=== PATIENT | male | born 1990 | race Caucasian/White ===

== ENCOUNTER 2016-07-08 17:10 | Observation (INO) | payer OTHER ==
[2016-07-08] MEDS ORDERED: HOME MEDICATION LIST NEEDED 1 EA EACH MISC ONE ×2 (18:44→19:29)
[2016-07-08 18:46] LABS: BASOPHIL# 0.4 X 10^3uL (0.0-0.1); BASOPHILS 2.4 % (0.0-2.0); EOSINOPHILS 0.2 % (0.0-6.0); HEMATOCRIT 50.4 % (42.0-54.0); HEMOGLOBIN 17.2 g/dL (14.0-18.0); LYMPHOCYTES 12.9 % (20.0-40.0); LYMPHOCYTES# 2.1 X 10^3uL (0.8-3.8); MEAN CELL VOLUME 90.2 fL (80.0-100.0); MEAN CORPUS. HGB CONCENTRATION 34.1 g/dL (32.0-36.0); MEAN CORPUSCULAR HEMOGLOBIN 30.8 pg (29.0-35.0); MEAN PLATELET VOLUME 8.3 fL (7.4-10.4); NEUTROPHILS 78.5 % (54.0-75.0); NEUTROPHILS# 12.5 X 10^3uL (2.6-6.7); RED BLOOD COUNT 5.59 X 10^6uL (4.20-6.10); RED CELL DISTRIBUTION WIDTH 11.1 % (11.5-14.5)
[2016-07-08] MEDS ORDERED: NORMAL SALINE 500 ML IV ONE (18:46)
[2016-07-08] MEDS ORDERED: WATER FOR INJECTION 20 ML ONE (18:46)
[2016-07-08] MEDS ORDERED: VANCOMYCIN HCL 1,000 MG/20 ML VIAL ONE (18:46)
[2016-07-08] MEDS ORDERED: ACETAMINOPHEN 325 MG TABLET PO PRN (19:29)
[2016-07-08] MEDS ORDERED: POLYETHYLENE GLYCOL 3350 17 GM POWD.PACK PO PRN (19:29)
[2016-07-08] MEDS ORDERED: MAG-AL PLUS XS SUSP 30 ML UDC PO PRN (19:29)
[2016-07-08] MEDS ORDERED: DIPH,PERTUSS(ACELL),TET VAC/PF 0.5 ML VIAL IM ONE (19:34)
[2016-07-08] MEDS ORDERED: cloNIDine HCL 0.1 MG TABLET PO PRN (19:34)
[2016-07-08] MEDS ORDERED: KETOROLAC TROMETHAMINE 30 MG/ML VIAL IV PRN (19:34)
[2016-07-08] MEDS ORDERED: AMPICILLIN/SULBACTAM 1.5 GM in NORMAL SALINE MINI-BAG+ 100 ML IV SCH (19:45)
--- NOTE | 2016-07-08 19:49 | ER PHYSICIAN DOCUMENTATION ---
Physician Documentation [facility] Name:Jose Armando Fernández Age:25 yrs Sex:Male :1990 Arrival Date:07/08/2016 Time:17:10 Bed1 Private MD: Fabrizio Williamson Disposition: 07/08/16 18:43 Admit ordered for He Ivory. Preliminary diagnosis is Abscess. - Bed requested for Medical/Surgical. - Condition is Fair. - Problem is new. - Symptoms have improved. 23 HR OBS Yes HPI: 07/08 18:37 This 25 yrs old Male presents to ER via Private Vehicle with complaints of sc Abscess - RT HAND. 18:37 The patient presents with an abscess of the right hand. Description: The affected area sc is approximately 4 cm(s), confluent, erythematous, tense. Onset: The symptom(s)/episode began/occurred 1 week(s) ago. Possible cause(s): IVDA. Associated signs and symptoms: Pertinent positives: erythema, streaking up arm. Historical: - Allergies: No known drug Allergies; - Home Meds: 1. losartan oral - PMHx: herin use; - PSHx: None; - Tetanus: < 10 years. - Ebola Screening: : Patient denies exposure to infectious person. Patient denies travel to an Ebola-affected area in the 21 days before illness onset. . - Immunization history: Flu Vaccine None. - Social history: Smoking status: Patient states former smoker of tobacco. Patient uses alcohol Patient/guardian denies using marijuana. ROS: 18:40 Constitutional: Negative for fever, chills, and weight loss. sc Eyes: Negative for injury, pain, redness, and discharge. ENT: Negative for injury, pain, and discharge. Neck: Negative for injury, pain, and swelling. Cardiovascular: Negative for chest pain, palpitations, and edema. Respiratory: Negative for shortness of breath, cough, wheezing, and pleuritic chest pain. Back: Negative for injury and pain. 18:40 Neuro: Negative for headache, weakness, numbness, tingling, and seizure. sc 18:40 Skin: Positive for abscess. Exam: Constitutional: This is a well developed, well nourished patient who is awake, alert, and in no acute distress. Head/Face: Normocephalic, atraumatic. Eyes: Pupils equal round and reactive to light, extra-ocular motions intact. Lids and lashes normal. Conjunctiva and sclera are non-icteric and not injected. Cornea within normal limits. Periorbital areas with no swelling, redness, or edema. ENT: Nares patent. No nasal discharge, no septal abnormalities noted. Tympanic membranes are normal and external auditory canals are clear. Oropharynx with no redness, swelling, or masses, exudates, or evidence of obstruction, uvula midline. Mucous membranes moist. Neck: Trachea midline, no thyromegaly or masses palpated, and no cervical lymphadenopathy. Supple, full range of motion without nuchal rigidity, or vertebral point tenderness. No meningismus. Chest/axilla: Normal chest wall appearance and motion. Nontender with no deformity. No lesions are appreciated. Cardiovascular: Regular rate and rhythm with a normal S1 and S2. No gallops, murmurs, or rubs. Normal PMI, no JVD. No pulse deficits. 18:41 Respiratory: Lungs have equal breath sounds bilaterally, clear to auscultation and sc percussion. No rales, rhonchi or wheezes noted. No increased work of breathing, no retractions or nasal flaring. 18:41 Musculoskeletal/extremity: Exam is negative for acute changes, except streaking to shoulder. 18:41 Skin: abscess, that is moderate sized. Vital Signs: 17:22 BP 144 / 90; Pulse 87; Resp 18; Temp 98.4; Pulse Ox 91% on R/A; Pain 8/10; st 18:05 Weight 88.45 kg; st 19:24 BP 122 / 61; Pulse 74; Resp 15; Pulse Ox 95% on R/A; Pain 0/10; mk2 Procedures: 18:41 I & D: Incision and drainage was performed for an abscess of the right right hand sc Prepped with Betadine, Anesthetized with ml's 2% Lidocaine with epinephrine. 2 ml's 2% Lidocaine with epinephrine. Incised with #11 blade. Drained moderate amount purulent fluid. the patient tolerated the procedure well. MDM: 17:16 Patient medically screened. sc 18:42 Differential diagnosis: abscess. Data reviewed: vital signs, nurses notes, lab test sc result(s), and as a result, I will admit patient. Counseling: I had a detailed discussion with the patient and/or guardian regarding: the historical points, exam findings, and any diagnostic results supporting the discharge/admit diagnosis, lab results, the need for further work-up and treatment in the hospital. 07/08 18:48 Order name: CBC AUTO DIF, MDIF/RMOR IF IND [facility] 07/08 21:48 Order name: ANTI-HIV 1 2 [facility] 07/08 21:48 Order name: HEPATITIS B SURFACE ANTIGEN [facility] 07/09 07:02 Order name: CBC AUTO DIF, MDIF/RMOR IF IND [facility] 07/09 07:04 Order name: BASIC METABOLIC PANEL [facility] 07/09 07:11 Order name: WOUND CULTURE AND GRAM STAIN [facility] 07/09 07:22 Order name: THYROID STIMULATING HORMONE [facility] 07/09 18:31 Order name: BLOOD CULTURE [facility] 07/09 18:50 Order name: BLOOD CULTURE [facility] 07/08 17:35 Order name: Iv Saline Lock; Complete Time: 18:25 sc Dispensed Medications: 18:47 CANCELLED (Duplicate Order): vancomycin 1 grams IVPB once over 2 hrs sc 18:49 Drug: Vancocin 1.5 grams; Route: IVPB; Infused Over: 2 hrs; Site: left wrist; st 19:39 Follow up: IV Status: Infusion continued upon admission mk2 Signatures: Ching Castro RN RN st Chew, Scott, MD MD sc Kruger, Meg, RN RN mk2
--- NOTE | 2016-07-08 19:49 | ER NURSING DOCUMENTATION ---
Nurse's Notes [facility] Name:Jose Armando Fernández Age:25 yrs Sex:Male :1990 Arrival Date:07/08/2016 Time:17:10 Bed1 Private MD: Diagnosis:Abscess Presentation: 07/08 17:12 Acuity: NAA 3 st 17:18 Presenting complaint: Patient states: pt is at [place] for herein use. pt is here st because he has a large abscess tot he right hand witch was his las injection sight. Transition of care: [place]. 17:18 Method Of Arrival: Private Vehicle st Triage Assessment: 17:20 General: Appears in no apparent distress, Behavior is cooperative. Pain: Complains of st pain in right hand and right arm Pain currently is 7 out of 10 on a pain scale. Also complains of pt states the pain is worse in his arm. Cardiovascular: No deficits noted. Respiratory: No deficits noted. GI: No deficits noted. Derm: red streaks on the inside of pt right arm. Injury Description: large angry abscess on the top of the right hand. Historical: - Allergies: No known drug Allergies; - Home Meds: 1. losartan oral - PMHx: herin use; - PSHx: None; - Tetanus: < 10 years. - Ebola Screening: : Patient denies exposure to infectious person. Patient denies travel to an Ebola-affected area in the 21 days before illness onset. . - Immunization history: Flu Vaccine None. - Social history: Smoking status: Patient states former smoker of tobacco. Patient uses alcohol Patient/guardian denies using marijuana. Screenin:23 Infectious Disease Risk None. Abuse screen: Denies threats or abuse. Denies injuries st from another. pt feels safe at [place]. Nutritional screening: No deficits noted. Assessment: 19:00 General: pt is a little anxious about his dx.. st Vital Signs: 17:22 BP 144 / 90; Pulse 87; Resp 18; Temp 98.4; Pulse Ox 91% on R/A; Pain 8/10; st 18:05 Weight 88.45 kg; st 19:24 BP 122 / 61; Pulse 74; Resp 15; Pulse Ox 95% on R/A; Pain 0/10; mk2 ED Course: 17:11 Patient arrived in ED. lm3 17:12 Ching pompa, RN is Primary Nurse. st 17:[address] 17:16 Fabrizio Garcia MD is Attending Physician. sc 17:23 Valuables Remains with patient Patient has correct armband on for positive st identification. Placed in gown. Bed in low position. 18:03 Missed attempts: 20 gauge X 1 in right forearm, 24 gauge in left wrist. st 18:03 Missed attempts: 20 gauge in left forearm. st 18:23 Inserted peripheral IV: 20 gauge in left Wrist and blood collected. st 18:27 Assist Provider Assist provider with I & D: of an abscess on right hand Set up I&D st tray. Performed by Fabrizio Garcia MD Culture sent to lab. Dressing with 4X4s, Patient tolerated well. 18:42 He Ivory MD is Admitting Physician. wi 18:49 Second set of blood cultures drawn by ga. st Administered Medications: 18:47 CANCELLED (Duplicate Order): vancomycin 1 grams IVPB once over 2 hrs wi 18:49 Drug: Vancocin 1.5 grams; Route: IVPB; Infused Over: 2 hrs; Site: left wrist; st 19:39 Follow up: IV Status: Infusion continued upon admission mk2 Outcome: 18:43 Decision to Admit by Provider. wi 18:54 Report given to Carmelo LAW st 18:54 Instructed on need to admit 19:48 Patient left the ED. mk2 Signatures: Ching Castro RN RN st Chew, Scott, MD MD sc Kruger, Meg, RN RN mk2 [facility] [place] 3
[2016-07-08] MEDS ORDERED: NORMAL SALINE IV SCH (20:00)
[2016-07-08] MEDS ORDERED: POTASSIUM CHLORIDE/0.45% NACL 1,000 ML IV SCH (20:00)
[2016-07-08] MEDS ORDERED: VANCOMYCIN HCL IV SCH (20:00)
[2016-07-08] MEDS ORDERED: CHLORDIAZEPOXIDE 25 MG CAPSULE PO SCH (21:00)
[2016-07-08] MEDS ORDERED: PRAZOSIN 1 MG PO SCH (21:00)
[2016-07-08] MEDS ORDERED: cloNIDine HCL 0.1 MG TABLET PO SCH (21:00)
[2016-07-08] MEDS: LOSARTAN POTASSIUM 50 MG TABLET PO SCH (21:15)
[2016-07-08] MEDS: PROBIOTIC 1 CAP CAPSULE PO SCH (21:16)
[2016-07-08] MEDS: AMPICILLIN/SULBACTAM 1.5 GM in NORMAL SALINE MINI-BAG+ 100 ML IV SCH (23:49)
[2016-07-09 06:19] VITALS: BP 100/49; PULSE 60; RESP 17; TEMP 97.9; O2SAT 93
[2016-07-09] MEDS: AMPICILLIN/SULBACTAM 1.5 GM in NORMAL SALINE MINI-BAG+ 100 ML IV SCH (06:31)
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
[2016-07-09 06:52] LABS: BLOOD UREA NITROGEN 18 mg/dL (9-20); CALCIUM 9.3 mg/dL (8.4-10.2); CHLORIDE 102 mmol/L (98-107); EST GLOMERULAR FILTRATION RATE > 60 mL/min; GLUCOSE 95 mg/dL (70-100); POTASSIUM 3.9 mmol/L (3.5-5.1); SODIUM 142 mmol/L (137-145)
[2016-07-09 06:56] LABS: BASOPHILS 0.4 % (0.0-2.0); EOSINOPHILS 0.5 % (0.0-6.0); EOSINOPHILS# 0.1 X 10^3uL (0.0-0.4); HEMATOCRIT 46.1 % (42.0-54.0); HEMOGLOBIN 15.9 g/dL (14.0-18.0); LYMPHOCYTES 29.2 % (20.0-40.0); MEAN CELL VOLUME 89.8 fL (80.0-100.0); MEAN CORPUS. HGB CONCENTRATION 34.6 g/dL (32.0-36.0); MEAN CORPUSCULAR HEMOGLOBIN 31.1 pg (29.0-35.0); MEAN PLATELET VOLUME 8.2 fL (7.4-10.4); MONOCYTES 8.9 % (2.0-10.0); MONOCYTES# 0.9 X 10^3uL (0.2-1.0); NEUTROPHILS# 6.1 X 10^3uL (2.6-6.7); PLATELET COUNT 392 X 10^3uL (130-440); RED BLOOD COUNT 5.13 X 10^6uL (4.20-6.10); RED CELL DISTRIBUTION WIDTH 11.7 % (11.5-14.5); WHITE BLOOD COUNT 10.1 X 10^3uL (3.9-10.7)
[2016-07-09 07:21] LABS: THYROID STIMULATING HORMONE 1.62 uIU/mL (0.47-4.68)
[2016-07-09] MEDS ORDERED: CLINDAMYCIN HCL 150 MG CAPSULE PO SCH (08:00)
--- NOTE | 2016-07-09 08:06 | PROGRESS NOTE: IM APSO ---
Assessment and Plan - Date of Encounter Date of Encounter: 07/09/16 (1) Abscess Status: Acute Assessment and plan: likely related to dirty needle (he reuses own needles, no sharing and HIV/Hep B negative). s/p I&D, minimal erythema and no discharge currently, epitrochlear node is smaller and lymphangitis improved. Culture pending but GPC's. Change Vanco/Unasyn to Clinda for DC. Spoke about remaining in hospital for another day but he would prefer to go back to [place] to start treatment. Slept well with clonidine nocte and may need Prazosin (possible PTSD as well help HTN). Telfa, reinforce with gauze and secure with roll gauze Current Visit: Yes (2) Leukocytosis Status: Acute Assessment and plan: related to #1 Current Visit: Yes (3) Lymphangitis Status: Acute Assessment and plan: related to #1 and improved, since abscess could have been linear/venous/tubular abscess, may benefit from ASA for several weeks. Current Visit: Yes (4) Hypertension Status: Acute Assessment and plan: age would suggest renal cause, normal BMP, aldosterone/renin pending. May warrant CT angio for SENAIT Current Visit: Yes - Time Spent With Patient Total time spent with greater than 50% in coordination of care (as documented) at patient's floor/unit and/or counseling patient: IM: PN Subjective General: good appetite, no anxiety, no confusion, no pain, no diaphoresis, no fever, no chills Cardiovascular: no chest pain, no chest pressure Respiratory: no cough, no sputum Gastrointestinal: no abdominal pain Musculoskeletal: other (I&D of abscess and possible lymphangitis/phlebitis, no pain, full rom digits/wrist/elbow.), no pain IM: PN Objective Exam - I&O/Vital Signs I&O: Intake & Output 07/08/16 07/09/16 07/09/16 21:59 05:59 13:59 Intake Total 1044 Output Total 600 Balance 444 Weight 85 kg 85 kg Intake: IV 694 Left Wrist 694 Oral 350 Output: Urine 600 Other: Urine Appearance Clear Clear Urine Color Yellow Yellow Voiding Method Urinal Urinal # Voids 2 Vital Signs: Last Vital Signs Temp 36.6 C 07/09/16 06:18 Pulse 60 07/09/16 06:18 Resp 17 07/09/16 06:18 BP 100/49 07/09/16 06:18 Pulse Ox 93 07/09/16 06:18 Oxygen Delivery Method Room Air - Constitutional General appearance: Present: average body habitus - Head Head exam: Present: atraumatic - Eye Eye exam: Absent: conjunctival injection - ENT ENT exam: Present: mucous membranes moist - Neck Neck exam: Absent: lymphadenopathy (small epitrochlear node, no erythema/pain, no axillar nodes and over lymphangitis, no palp cords and non tender, has improved, less streaking/erythema and nontender) - Respiratory Respiratory exam: Present: CTAB - Cardiovascular Cardiovascular exam: Present: RRR - Allied Health Notes Allied health notes reviewed: nursing - Lab Labs: Laboratory Last Values WBC 10.1 X 10^3uL (3.9-10.7) 07/09/16 06:20 RBC 5.13 X 10^6uL (4.20-6.10) 07/09/16 06:20 Hgb 15.9 g/dL (14.0-18.0) 07/09/16 06:20 Hct 46.1 % (42.0-54.0) 07/09/16 06:20 MCV 89.8 fL (80.0-100.0) 07/09/16 06:20 MCH 31.1 pg (29.0-35.0) 07/09/16 06:20 MCHC 34.6 g/dL (32.0-36.0) 07/09/16 06:20 RDW 11.7 % (11.5-14.5) 07/09/16 06:20 Plt Count 392 X 10^3uL (130-440) 07/09/16 06:20 MPV 8.2 fL (7.4-10.4) 07/09/16 06:20 Neutrophils % 61.0 % (54.0-75.0) 07/09/16 06:20 Lymphocytes % 29.2 % (20.0-40.0) 07/09/16 06:20 Eosinophils % 0.5 % (0.0-6.0) 07/09/16 06:20 Basophils % 0.4 % (0.0-2.0) 07/09/16 06:20 Neutrophils # 6.1 X 10^3uL (2.6-6.7) 07/09/16 06:20 Lymphocytes # 3.0 X 10^3uL (0.8-3.8) 07/09/16 06:20 Monocytes 8.9 % (2.0-10.0) 07/09/16 06:20 Monocytes # 0.9 X 10^3uL (0.2-1.0) 07/09/16 06:20 Eosinophils # 0.1 X 10^3uL (0.0-0.4) 07/09/16 06:20 Basophils # 0.0 X 10^3uL (0.0-0.1) 07/09/16 06:20 Sodium 142 mmol/L (137-145) 07/09/16 06:20 Potassium 3.9 mmol/L (3.5-5.1) 07/09/16 06:20 Chloride 102 mmol/L (98-107) 07/09/16 06:20 Carbon Dioxide 25 mmol/L (22-30) 07/09/16 06:20 BUN 18 mg/dL (9-20) 07/09/16 06:20 Creatinine 1.0 mg/dL (0.7-1.3) 07/09/16 06:20 GFR Calculation > 60 mL/min 07/09/16 06:20 Glucose 95 mg/dL (70-100) 07/09/16 06:20 Calcium 9.3 mg/dL (8.4-10.2) 07/09/16 06:20 TSH 1.62 uIU/mL (0.47-4.68) 07/09/16 06:20 RPR Cancelled 07/08/16 18:20 Hep Bs Antigen Negative (NEGATIVE) 07/08/16 18:20 HIV 1&2 Antibody Nonreactive 07/08/16 18:20 Quality Questions - VTE Prophylaxis Assessment VTE Present on Admission?: No Patient at risk for venous thromboembolism?: Yes VTE Risk Level: Low Risk Pharmaceutical VTE prophylaxis contraindication reason: not indicated Mechanical VTE prophylaxis contraindication reason: not indicated (4) Hypertension Qualifiers: Hypertension type: essential hypertension Qualified Code(s): I10 - Essential (primary) hypertension
--- NOTE | 2016-07-09 08:14 | DC SUMMARY: IM Note ---
Discharge Summary: IM/Peds Provider: Date of Admission: 07/08/16 Admitting Provider: ISABELLE BROWN Attending Provider: ISABELLE BROWN Discharging Provider: ISABELLE BROWN Primary Care Provider: Discharge Date: 07/09/16 - Diagnosis (1) Abscess Status: Acute (2) Leukocytosis Status: Acute (3) Lymphangitis Status: Acute (4) Hypertension Status: Acute Qualifiers: Hypertension type: essential hypertension Qualified Code(s): I10 - Essential (primary) hypertension - Time Spent with Patient Total time spent providing and/or coordinating discharge services: Discharge - Patient/Caregiver Discharge Instructions Activity Level: no limits though keep right hand elevated when able and clean daily as well reapply gauze and roll gauze to secure daily and as needed. May need vaseline gauze or telfa to keep from adhering to wound Diet: regular Overall discharge status: patient is progressing back to baseline Home Medications: Prazosin 1 mg PO HS #30 aspirin EC [Aspirin EC*] 81 mg PO DAILY #50 tablet Clindamycin HCl [Cleocin HCl*] 300 mg PO Q8H #30 capsule Probiotic [Amanda-Q Capsule*] 1 cap PO BID #50 capsule Disposition: D/C OTHER REHABILATION FACILIT Discharge Summary Data - Medication History Medication History: Inpatient Medications 07/08/16 20:00 Vancomycin HCl [Vancocin] 1,500 mg Normal Saline [Sodium Chloride 0.9% 250 ml ] 500 ml IV Q12H 07/08/16 21:00 Chlordiazepoxide HCl [Librium] 25 mg PO HS Prazosin 1 mg PO HS Probiotic [Amanda-Q Capsule] 1 cap PO BID 07/09/16 00:00 Ampicillin/Sulbactam [Unasyn] 1.5 gm Normal Saline Mini-Bag+ [Sodium Chloride 100 ml Mini-Bag Plus] 100 ml IV Q6H 07/09/16 08:00 Clindamycin HCl [Cleocin HCl] 300 mg PO Q6H 07/09/16 09:00 aspirin EC [Ecotrin 81 mg] 81 mg PO DAILY Procedures and tests throughout hospitalization: Completed Lab Orders 07/08/16 18:20 ANTI-HIV 1&2 [CHEM] Routine HEPATITIS B SURFACE ANTIGEN [CHEM] Routine 07/09/16 06:20 THYROID STIMULATING HORMONE [CHEM] Routine Pending Orders 05/26/17 18:20 BLOOD CULTURE [BC] Routine RPR [SER] Routine 07/08/16 18:25 WOUND CULTURE AND GRAM STAIN [RM] Routine 07/08/16 18:30 ANAEROBE IDENTIFICATION [SEND] Routine 07/08/16 18:40 BLOOD CULTURE [BC] Routine 07/08/16 20:00 Vancomycin HCl [Vancocin] 1,500 mg Normal Saline [Sodium Chloride 0.9% 250 ml ] 500 ml IV Q12H 07/08/16 21:00 Chlordiazepoxide HCl [Librium] 25 mg PO HS Prazosin 1 mg PO HS Probiotic [Amanda-Q Capsule] 1 cap PO BID 07/09/16 00:00 Ampicillin/Sulbactam [Unasyn] 1.5 gm Normal Saline Mini-Bag+ [Sodium Chloride 100 ml Mini-Bag Plus] 100 ml IV Q6H 07/09/16 08:00 Clindamycin HCl [Cleocin HCl] 300 mg PO Q6H 07/09/16 09:00 aspirin EC [Ecotrin 81 mg] 81 mg PO DAILY 07/09/16 19:00 VANCOMYCIN TROUGH [CHEM] Routine 07/09/16 20:30 VANCOMYCIN PEAK [CHEM] Routine Labs on day of discharge: Labs from last 24 hours 07/09/16 07/09/16 06:20 06:20 WBC 10.1 RBC 5.13 Hgb 15.9 Hct 46.1 MCV 89.8 MCH 31.1 MCHC 34.6 RDW 11.7 Plt Count 392 MPV 8.2 Neutrophils % 61.0 Lymphocytes % 29.2 Eosinophils % 0.5 Basophils % 0.4 Neutrophils # 6.1 Lymphocytes # 3.0 Monocytes 8.9 Monocytes # 0.9 Eosinophils # 0.1 Basophils # 0.0 Sodium 142 Potassium 3.9 Chloride 102 Carbon Dioxide 25 BUN 18 Creatinine 1.0 GFR Calculation > 60 Glucose 95 Calcium 9.3 Renin Activity Pending Aldosterone Pending TSH 1.62 - Impressions abscess with lymphangitis and possible phlebitis, improved on Unasyn/Vanco, HIV/ Hep B and RPR negative, WBC normalized. Change to PO Clindamycin. Daily ASA for next month. F/U Aldosterone/Renin and if abnormal refer to Cardiology for possible SENAIT ad treatment of HTN. Possible PTSD exacerbating insomnia, consider prazosin nocte as adjunct. IM: Discharge Physical Exam - I&O/Vital Signs I&O: Intake & Output 07/08/16 07/09/16 07/09/16 21:59 05:59 13:59 Intake Total 1044 Output Total 600 Balance 444 Weight 85 kg 85 kg Intake: IV 694 Left Wrist 694 Oral 350 Output: Urine 600 Other: Urine Appearance Clear Clear Urine Color Yellow Yellow Voiding Method Urinal Urinal # Voids 2 Vital Signs: Last Vital Signs Temp 36.6 C 07/09/16 06:18 Pulse 60 07/09/16 06:18 Resp 17 07/09/16 06:18 BP 100/49 07/09/16 06:18 Pulse Ox 93 07/09/16 06:18 Oxygen Delivery Method Room Air - Constitutional General appearance: Present: average body habitus - Head Head exam: Present: atraumatic - Eye Eye exam: Absent: conjunctival injection - ENT ENT exam: Present: mucous membranes moist - Neck Neck exam: Absent: lymphadenopathy (small epitrochlear node, no erythema/pain, no axillar nodes and over lymphangitis, no palp cords and non tender, has improved, less streaking/erythema and nontender) - Respiratory Respiratory exam: Present: CTAB - Cardiovascular Cardiovascular exam: Present: RRR - Allied Health Notes Allied health notes reviewed: nursing
[2016-07-09] MEDS ORDERED: NORMAL SALINE IV SCH (09:00)
[2016-07-09] MEDS ORDERED: VANCOMYCIN HCL IV SCH (09:00)
[2016-07-09] MEDS: LOSARTAN POTASSIUM 50 MG TABLET PO SCH (09:19)
[2016-07-09] MEDS: PROBIOTIC 1 CAP CAPSULE PO SCH (09:19)
[2016-07-13 12:56] LABS: ALDOSTERONE SEE COMMENTS (()); RENIN ACTIVITY SEE COMMENTS (())
== END 2016-07-09 11:33 ==
LOC: ER 17:10 → IN 19:36
PROVIDERS: ADMIT Hospitalist; ATTEND Hospitalist
DX: L02.413 Cutaneous abscess of right upper limb (principal); D72.829 Elevated white blood cell count, unspecified; I10 Essential (primary) hypertension; F11.288 Opioid dependence with other opioid-induced disorder; Z79.899 Other long term (current) drug therapy
CPT/HCPCS: 36415; 80048; 82088; 84244; 84443; 85025; 86592; 86703; 87040; 87070; 87075; 87076; 87077; 87186; 87205; 87340; 96365; 96366; 96367; 96372; 96375; 99284; G0378; J0295; J1885; J3370; J7040; J7050